=== PATIENT | female | born 1980 | race African-American/Black ===

== ENCOUNTER 2016-11-19 15:37 | Emergency (ER) | payer SELFPAY ==
[~2016-11-19] VITALS: Ht 167.6 cm; Wt 72.7 kg
[~2016-11-19 15:37] MED LIST: ALEVE 220MG220 MG PO; FLEXERIL 1010 MG/TAB PO; IRON325 M2; MIRALAX119G; MUCINEX 60600 MG/TA1 PO; NAPROSYN500 MG PO; NO HOME MEDICATIONS; NORCO 325 MG-51 TAB; NORCO 325 MG-51 TAB PO; NORVASC 5MG5 MG/TAB PO; PRENATAL VITAMI1 TAB; PROMETHAZINE12.5 M5 PO; TOPROL XL50 MG PO; ZITHROMAX 250M250 MG PO
[2016-11-19 15:48] VITALS: BP 120/84; PULSE 87; TEMP 99.3
[2016-11-19] MEDS ORDERED: NORCO 325 MG-51 TAB PO (17:34)
[2016-11-19] MEDS ORDERED: NAPROSYN500 MG PO (17:34)
== END 2016-11-19 17:44 | disposition home or self-care (01) ==
LOC: COL.ER 15:37
DX: M25.562 Pain in left knee (principal); M25.572 Pain in left ankle and joints of left foot; I10 Essential (primary) hypertension; I49.5 Sick sinus syndrome

== ENCOUNTER 2017-02-15 07:56 | Emergency (ER) | payer SELFPAY ==
[~2017-02-15] VITALS: Ht 167.6 cm; Wt 75.0 kg
[2017-02-15 07:59] VITALS: BP 155/81; PULSE 90; TEMP 97.8
[2017-02-15 09:27] LABS: PH 7 (5-8); SQUAMOUS EPITHELIAL 0-2 /hpf; URINE APPEARANCE Clear; URINE BACTERIA None Seen /hpf; URINE BILIRUBIN Negative (NEGATIVE); URINE BLOOD 3+ (NEGATIVE); URINE COLOR Yellow; URINE GLUCOSE Negative (NEGATIVE); URINE KETONE Negative (NEGATIVE); URINE RBC >50 /hpf; URINE UROBILINOGEN Negative (NEGATIVE)
[2017-02-15] MEDS ORDERED: NORCO 325 MG-51 TAB PO (09:43)
[2017-02-15 10:18] LABS: BASO % 0.5 % (0.0-2.0); EOS % 0.4 % (0-4.0); GRAN # 4.9 (1.4-6.5); GRAN % 62.9 % (42.2-75.2); HEMATOCRIT 30.9 % (37.0-47.0); HEMOGLOBIN 10.6 g/dl (12.5-16.0); LYMPH # 2.3 (1.2-3.4); LYMPH % 29.7 % (20.0-51.0); MEAN CELL VOLUME 77 fl (80.0-100.0); MEAN CORPUSCULAR HEMOGLOBIN 27 pg (27.0-31.0); MEAN CORPUSCULAR HGB CONC 34 g/dl (33.0-37.0); MEAN PLATELET VOLUME 10.4 fl (7.4-10.4); MONO # 0.5 (0.1-0.6); MONO % 6.1 % (1.7-9.3); PLATELET COUNT 286 K/mm3 (130-400); REDCELL DISTRIBUTION WIDTH-CV 15.9 % (11.5-14.5); WHITE BLOOD COUNT 7.7 K/mm3 (4.8-10.8)
[2017-02-15 11:49] LABS: CHLAMYDIA/TRACH by PCR Female NOT DETECTED; NEISSERIA GON by PCR Female NOT DETECTED
== END 2017-02-15 12:00 | disposition home or self-care (01) ==
LOC: COL.ER 07:56
PROVIDERS: Family Medicine
DX: D25.9 Leiomyoma of uterus, unspecified (principal); J45.909 Unspecified asthma, uncomplicated; I10 Essential (primary) hypertension; Z87.891 Personal history of nicotine dependence; F12.90 Cannabis use, unspecified, uncomplicated; Z98.51 Tubal ligation status; Z98.890 Other specified postprocedural states; Z86.2 Personal history of diseases of the blood and blood-forming organs and certain disorders involving the immune mechanism
CPT/HCPCS: J2270; J2550

== ENCOUNTER 2018-03-01 18:34 | Emergency (ER) | payer SELFPAY ==
[~2018-03-01] VITALS: Ht 170.2 cm; Wt 70.5 kg
[2018-03-01 18:38] VITALS: TEMP 98.2
[2018-03-01] MEDS ORDERED: DEPAKOTE500 MG PO (18:47)
[2018-03-01 19:10] LABS: BASO # 0.1 (0.0-0.2); BASO % 0.5 % (0.0-2.0); EOS # 0.1 (0.0-0.7); EOS % 0.5 % (0-4.0); GRAN # 6.1 (1.4-6.5); GRAN % 60.5 % (42.2-75.2); LYMPH # 3.1 (1.2-3.4); LYMPH % 31.3 % (20.0-51.0); MEAN CELL VOLUME 70 fl (80.0-100.0); MEAN CORPUSCULAR HGB CONC 34 g/dl (33.0-37.0); MEAN PLATELET VOLUME 11.2 fl (7.4-10.4); MONO # 0.7 (0.1-0.6); MONO % 6.9 % (1.7-9.3); PLATELET COUNT 219 K/mm3 (130-400); RED BLOOD COUNT 4.13 M/mm3 (4.10-5.30); REDCELL DISTRIBUTION WIDTH-CV 21.6 % (11.5-14.5); RETIC # 0.07 M/mm3 (0.02-0.16); RETIC % 1.6 % (0.5-3.52)
[2018-03-01 19:12] LABS: HEMATOCRIT 28.9 % (37.0-47.0); HEMOGLOBIN 9.9 g/dl (12.5-16.0); MEAN CORPUSCULAR HEMOGLOBIN 24 pg (27.0-31.0)
[2018-03-01 19:21] LABS: BILIRUBIN,TOTAL 0.4 mg/dL (0.0-1.0); C-REACTIVE PROTEIN 1.2 mg/dL (0.0-0.9); CALCIUM 9.5 mg/dL (8.4-10.2); CREATININE, serum 0.89 mg/dL (0.52-1.25); POTASSIUM 3.8 mmol/L (3.4-5.0)
[2018-03-01 19:55] LABS: COLLECTION METHOD CLEAN CATCH
[2018-03-01 20:00] LABS: PH 7 (5-8); SQUAMOUS EPITHELIAL 0-2 /hpf; URINE APPEARANCE Clear; URINE BACTERIA None Seen /hpf; URINE BILIRUBIN Negative (NEGATIVE); URINE BLOOD Negative (NEGATIVE); URINE COLOR Straw; URINE GLUCOSE Negative (NEGATIVE); URINE KETONE Negative (NEGATIVE); URINE LEUKOCYTE ESTERASE Negative (NEGATIVE); URINE NITRATE Negative (NEGATIVE); URINE PROTEIN(semi-quant) Negative (NEGATIVE); URINE RBC 0-2 /hpf; URINE UROBILINOGEN Negative (NEGATIVE)
[2018-03-01] MEDS ORDERED: NORCO 325 MG-51 TAB PO (20:26)
[2018-03-01 20:35] VITALS: BP 121/67; PULSE 81
== END 2018-03-01 20:35 | disposition home or self-care (01) ==
LOC: COL.ER 18:34
PROVIDERS: Emergency Medicine
DX: N83.291 Other ovarian cyst, right side (principal); I10 Essential (primary) hypertension; Z98.51 Tubal ligation status; Z86.2 Personal history of diseases of the blood and blood-forming organs and certain disorders involving the immune mechanism; Z32.02 Encounter for pregnancy test, result negative; Z87.891 Personal history of nicotine dependence; Z88.0 Allergy status to penicillin; Z88.2 Allergy status to sulfonamides; Z88.5 Allergy status to narcotic agent
CPT/HCPCS: J2270; J2405; J7030; Q9967

== ENCOUNTER 2022-01-23 14:12 | Inpatient (IN) | payer BC ==
[~2022-01-23] VITALS: Ht 167.6 cm; Wt 66.7 kg
[~2022-01-23 14:12] MED LIST changes: +DEPAKOTE500 MG PO
[2022-01-23 16:00] VITALS: BP 99/62; PULSE 76; TEMP 98.1
[2022-01-23] MEDS ORDERED: VITAMIN D3400 I1 PO (16:55)
[2022-01-23] MEDS ORDERED: PROFERRIN ES12 MG PO (16:56)
[2022-01-23] MEDS ORDERED: KLOR-CON/EF25 MEQ PO (16:56)
--- NOTE | 2022-01-23 17:11 | NUR ---
ADMISSION INTAKE AND ASSESSMENT COMPLETED. MED REC UPDATED. PT ORIENTED TO ROOM, MOTHER AT BEDSIDE. REPORTS A HEADACHE AT THIS TIME. AWAITING ORDERS. WILL CONTINUE TO MONITOR.
[2022-01-23] MEDS ORDERED: POTASSIUM GLUC595 M1 PO (18:29)
[2022-01-23] MEDS ORDERED: VITAMIN D31000 I1 PO (18:30)
[2022-01-23 21:29] VITALS: BP 101/65; PULSE 78; TEMP 97.7
[2022-01-24 00:27] VITALS: BP 86/55; PULSE 64; TEMP 98.3
[2022-01-24 03:21] VITALS: BP 95/76; PULSE 37; PULSE 69; TEMP 97.8
--- NOTE | 2022-01-24 06:41 | NUR ---
pt on comfort care only, family at bedside, requested pain meds @HS and pt has slept since. O2 per NC for comfort, RIJ intact/secure. emanuel draining minimal amt of urine.
--- NOTE | 2022-01-24 06:44 | NUR ---
pt on RA, c/o headache throughout this shift, minimal relief with tylenol and phenergan, tylenol requested again this am, given with sip of water as pt is NPO, HR currently 70 bpm per tele, cardizem gtt @ 5cc/hr per PIV. pt up ad amna in room
[2022-01-24 06:58] LABS: BASO % 0.7 % (0.0-2.0); EOS # 0.1 K/mm3 (0.0-0.7); EOS % 1.6 % (0.0-4.0); GRAN # 1.8 K/mm3 (1.4-6.5); GRAN % 42.9 % (42.2-75.2); HEMOGLOBIN 12.9 g/dl (12.5-16.0); LYMPH # 1.8 K/mm3 (1.2-3.4); LYMPH % 42.9 % (20.0-51.0); MEAN CELL VOLUME 91 fl (80.0-100.0); MEAN CORPUSCULAR HEMOGLOBIN 33 pg (27-31); MEAN CORPUSCULAR HGB CONC 36 g/dl (33.0-37.0); MEAN PLATELET VOLUME 12.4 fl (7.4-10.4); MONO # 0.5 K/mm3 (0.1-0.6); MONO % 11.4 % (1.7-9.3); PLATELET COUNT 164 K/mm3 (130-400); RED BLOOD COUNT 3.96 M/mm3 (4.10-5.30)
--- NOTE | 2022-01-24 07:07 | NUR ---
awake resting in bed, bedside shift report received from TRAVIS Marie
[2022-01-24 07:15] LABS: HEMATOCRIT 35.9 % (37.0-47.0)
[2022-01-24 07:21] LABS: CALCIUM 8.6 mg/dL (8.4-10.2); CREATININE, serum 0.92 mg/dL (0.57-1.11); POTASSIUM 3.9 mmol/L (3.5-4.5)
[2022-01-24 08:15] VITALS: BP 97/70; PULSE 75; TEMP 98.2
--- NOTE | 2022-01-24 08:23 | NUR ---
in bed dozing at intervals, full assessment completed, see interventions for further info, denies needs at this time
--- NOTE | 2022-01-24 09:35 | NUR ---
Dr Slade in to see patient
--- NOTE | 2022-01-24 09:52 | NUR ---
spoke with Elmira in the labor employment associate and procedure scheduled for 1300
--- NOTE | 2022-01-24 10:04 | NUR ---
KURT met with the patient and her friend, Araceli Story, to discuss discharge plan. The patient lives alone in [place]. She reports independence with ADLs and does not have any DME. The patient's primary care provider is Chely Benitez APRN at [facility] in and she receives her medications from [facility] or [facility]. The patient does not have a DPOA-HC, but she was interested in completing one while here. She states that she is still legally and does not want her making any decisions. KURT provided the form. The patient designated her mother, Kiara Schaefer (ph#[phone]), and her friend, Araceli Story (ph#[phone]), as the alternate. KURT and RANJIT Aldana, witnessed the patient's signature. KURT provided the patient with the original and some copies. KURT placed a copy in the patient's chart. The patient is listed as self pay. The patient informed KURT that she does have insurance and that it should be in the documents that were transferred with her, from [place]. The document lists that she has [employer]. KURT notified admissions and Financial Counseling. The patient plans on returning home upon discharge. No additional needs at this time. *Discharge plan: home*
--- NOTE | 2022-01-24 10:15 | NUR ---
resting in bed visiting with a friend, consent signed for procedure, denies needs
[2022-01-24 11:59] VITALS: BP 103/73; PULSE 69; TEMP 98
--- NOTE | 2022-01-24 13:30 | NUR ---
resting in bed, first dose sotolo given and carizem drip discontinued
--- NOTE | 2022-01-24 13:53 | NUR ---
Dr Slade in to see patient, report given to TRAVIS Ramsey
--- NOTE | 2022-01-24 14:26 | NUR ---
loop recorder placed, chest with gauze dressing CD&I, bedside report given to TRAVIS Ramsey
--- NOTE | 2022-01-24 16:00 | NUR ---
Patient called and reported that the incision site for the loop recorder was bleeding. Nurse assessed the site and called petroleum refinery laborer. garden labourer stated to change dressing and apply pressure and to monitor. 1 additional steri strip added with sterile 2x2 and paper tape. No further needs expressed. Call light within reach
[2022-01-24 17:25] VITALS: BP 104/73; PULSE 71; TEMP 98.6
--- NOTE | 2022-01-24 18:22 | NUR ---
Patient resting in bed, A&Ox3. Loop recorder site CDI. Reports discomfort in back r/t laying in bed. No reported chest pain. Call light within reach
--- NOTE | 2022-01-24 20:36 | NUR ---
answered pt's call light, she states "I'm bleeding out" pointing to her loop recorder insertion site. was told in report that dressing had been changed x1 since procedure d/t bloody drainage, dressing now saturated and blood draining into bed, pt stated she had just finished eating and was going to take a sponge bath, but noticed she was wet, her mother is at bedside and had her lay flat in bed and hold pressure. notified MYKEL Herring per phone, wants RN to remove dressing and check site. removed dressing and found steri strips completely saturated, incision open and actively bleeding, attempted to place new steri strips without success, pressure applied with gauze. MYKEL Mariano notified @2035, came to see pt, notified TRAVIS Tovardormitory supervisor @ 2049 that we needed surgicel, 2100 placed surgicel and covered with pressure dressing, within 10 mins dressing was saturated again. TRAVIS Tovar @ bedside, removed surgicel, site continues to actively drain bright red blood. new surgicel placed with pressure dressing. site continues to ooze blood even after 2nd application. Montserrat @ bs, pt reporting increased pain at site, requesting something for pain. [place] 5 ordered and given @ 2126. MYKEL Mariano, attempting to close site with dermabond. covered with another pressure dressing, pt lying flat in bed, mother at bedside, allowed to spend the noc, per TRAVIS Tovar HS. 2209 pt reports dressing saturated again, wants patient observation assistant Dr Slade notified. Montserrat attempted to call, Dr Slade not dictaphone mechanic, not answering, she has spoken with Dr. Prieto
[2022-01-24 23:16] VITALS: BP 125/87; PULSE 65; TEMP 98.2
[2022-01-25 02:50] VITALS: BP 98/75; PULSE 64; TEMP 97.7
[2022-01-25 06:56] LABS: BASO % 0.4 % (0.0-2.0); EOS # 0.1 K/mm3 (0.0-0.7); EOS % 1.5 % (0.0-4.0); GRAN # 2.2 K/mm3 (1.4-6.5); GRAN % 47.4 % (42.2-75.2); LYMPH # 1.8 K/mm3 (1.2-3.4); LYMPH % 39.4 % (20.0-51.0); MEAN CORPUSCULAR HEMOGLOBIN 31 pg (27-31); MEAN CORPUSCULAR HGB CONC 36 g/dl (33.0-37.0); MONO # 0.5 K/mm3 (0.1-0.6); MONO % 11.1 % (1.7-9.3); PLATELET COUNT 176 K/mm3 (130-400); RED BLOOD COUNT 3.86 M/mm3 (4.10-5.30); REDCELL DISTRIBUTION WIDTH-CV 12.5 % (11.5-14.5)
--- NOTE | 2022-01-25 07:11 | NUR ---
dressing to chest CDI this am, [place] helping with pain and pt able to rest. valproic acid level drawn this am as pt was concerned about not taking the depakote for a few days. remains in NSR per tele.
[2022-01-25 07:13] LABS: CALCIUM 8.8 mg/dL (8.4-10.2); CREATININE, serum 1.02 mg/dL (0.57-1.11); MAGNESIUM 1.9 mg/dL (1.6-2.6)
[2022-01-25 07:14] LABS: HEMATOCRIT 33.2 % (37.0-47.0)
[2022-01-25 07:17] LABS: MEAN CELL VOLUME 86 fl (80.0-100.0)
[2022-01-25 09:01] VITALS: BP 118/72; PULSE 75; TEMP 98.1
--- NOTE | 2022-01-25 09:12 | NUR ---
PT SITTING UP IN BED. MORNING MEDICATIONS GIVEN. SHIFT ASSESSMENT COMPLETED. PT REPORTS PAIN TO LOOP RECORDER IMPLANTATION SITE. PRESSURE DRESSING IN PLACE, C/D/I. DENIES ANY OTHER PAIN OR NEEDS AT THIS TIME. WILL CONTINUE TO MONITOR.
--- NOTE | 2022-01-25 09:49 | NUR ---
VERBAL ORDERS RECIEVED TO REMOVE PRESSURE DRESSING FROM LOOP RECORDER IMPLANTATION AND PLACE STERI STRIPS TO AREA.
--- NOTE | 2022-01-25 11:47 | NUR ---
PRESSURE DRESSING REMOVED AND STERI STRIPS PLACED TO INCISION SITE. PT EDUCATED ON MONITORING FOR BLEEDING.
[2022-01-25 11:52] VITALS: BP 110/77; PULSE 67; TEMP 97.9
[2022-01-25 15:55] VITALS: BP 95/68; PULSE 77; TEMP 98.2
[2022-01-25 19:15] VITALS: BP 118/80; PULSE 67; TEMP 97.4
--- NOTE | 2022-01-25 19:39 | NUR ---
RECEIVED CHANGE OF SHIFT REPORT FROM DAY SHIFT RN.
[2022-01-25 23:36] VITALS: BP 107/70; PULSE 78; TEMP 98.1
[2022-01-26 04:52] VITALS: BP 101/70; PULSE 72; TEMP 98.2
[2022-01-26 06:01] LABS: BASO % 0.6 % (0.0-2.0); EOS # 0.1 K/mm3 (0.0-0.7); EOS % 1.1 % (0.0-4.0); GRAN # 3.1 K/mm3 (1.4-6.5); GRAN % 56.2 % (42.2-75.2); HEMATOCRIT 32.9 % (37.0-47.0); HEMOGLOBIN 11.8 g/dl (12.5-16.0); LYMPH # 1.8 K/mm3 (1.2-3.4); LYMPH % 32.9 % (20.0-51.0); MEAN CELL VOLUME 88 fl (80.0-100.0); MEAN CORPUSCULAR HEMOGLOBIN 32 pg (27-31); MEAN CORPUSCULAR HGB CONC 36 g/dl (33.0-37.0); MEAN PLATELET VOLUME 11.9 fl (7.4-10.4); MONO # 0.5 K/mm3 (0.1-0.6); MONO % 8.8 % (1.7-9.3); PLATELET COUNT 161 K/mm3 (130-400); RED BLOOD COUNT 3.75 M/mm3 (4.10-5.30); REDCELL DISTRIBUTION WIDTH-CV 12.5 % (11.5-14.5)
[2022-01-26 06:16] LABS: CALCIUM 8.9 mg/dL (8.4-10.2); CREATININE, serum 0.88 mg/dL (0.57-1.11); MAGNESIUM 1.7 mg/dL (1.6-2.6)
--- NOTE | 2022-01-26 06:40 | NUR ---
CHANGE OF SHIFT REPORT GIVEN TO DAY SHIFT MARISSA ROBLES.
[2022-01-26 07:40] VITALS: BP 102/74; PULSE 78; TEMP 98.2
--- NOTE | 2022-01-26 08:05 | NUR ---
PT RESTING IN BED. MORNING MEDICATIONS GIVEN. SHIFT ASSESSMENT COMPLETED. PT REPORTS TENDERNESS TO LOOP RECORDER IMPLANTATION SITE, STERI STRIPS IN PLACE, C/D/I. PT COMPLAINING OF MIGRAINE AND REQUSTING MEDICATION, WILL NOTIFY HOSPITALIST. CONTINUING TO MONITOR.
[2022-01-26] MEDS ORDERED: BETAPACE 80MG80 MG PO (09:13)
[2022-01-26] MEDS ORDERED: CLEOCIN HCL300 MG PO (09:21)
[2022-01-26] MEDS ORDERED: ASPIRIN E.C. 8181 MG PO (09:22)
--- NOTE | 2022-01-26 11:28 | NUR ---
DISCHARGE INSTRUCTIONS GIVEN, ALL QUESTIONS ANSWERED, MOTHER AT BEDSIDE. IV D/C. TELE D/C. PT PACKING BELONINGS AT THIS TIME. WILL ESCORT DOWN TO VEHICLE.
--- NOTE | 2022-01-26 11:39 | NUR ---
PT ESCORTED DOWN TO VEHICLE. WILL D/C FROM SYSTEM.
--- NOTE | 2022-01-26 13:30 | NUR ---
First visit from the solar consultant. prayed with patient. No other needs right now.
== END 2022-01-26 11:39 | disposition home or self-care (01) | DRG 262 ==
LOC: MEDICAL 14:12
PROVIDERS: Nurse Anesthetist, Certified Registered; Nurse Practitioner Family; Physician Assistant
PROC: 0JH632Z Insertion of Monitoring Device into Chest Subcutaneous Tissue and Fascia, Percutaneous Approach (ICD-10-PCS; principal; 2022-01-24)
DX: I48.91 Unspecified atrial fibrillation (principal); I10 Essential (primary) hypertension; D57.3 Sickle-cell trait; D50.9 Iron deficiency anemia, unspecified; G40.909 Epilepsy, unspecified, not intractable, without status epilepticus; G43.909 Migraine, unspecified, not intractable, without status migrainosus; F17.210 Nicotine dependence, cigarettes, uncomplicated; I34.0 Nonrheumatic mitral (valve) insufficiency; Z87.442 Personal history of urinary calculi; Z85.828 Personal history of other malignant neoplasm of skin
CPT/HCPCS: 99223-AI; 99231-AI; 99232-AI; 99239; C1764; J1200; J1650; J2550; J3475